=== PATIENT | female | born 1935 | race Caucasian/White ===

== ENCOUNTER 2017-01-21 05:50 | Day surgery (SDC) | payer MEDICARE, BC ==
[2017-01-10 10:41] LABS: BASOPHILS 0.2 %; BASOPHILS ABSOLUTE 0.01 10/3/uL (0.0-0.16); EOSINOPHILS 1.9 %; EOSINOPHILS ABSOLUTE 0.09 10/3/uL (0.0-0.53); HEMATOCRIT 39.2 % (36.0-48.0); HEMOGLOBIN 13.2 g/dL (12.0-16.0); IMMATURE GRANULOCYTES 0.2 %; IMMATURE GRANULOCYTES ABSOLUTE 0.01 10/3/uL (0.0-0.11); LYMPHOCYTES 21.5 %; LYMPHOCYTES ABSOLUTE 1.01 10/3/uL (0.67-4.30); MEAN CORPUS HGB CONC 33.7 g/dL (32.0-36.0); MEAN CORPUSCULAR HEMOGLOB 32.7 pg (26.0-34.0); MEAN PLATELET VOLUME 9.9 fL (9.2-13.0); MONOCYTES 7.9 %; MONOCYTES ABSOLUTE 0.37 10/3/uL (0.21-1.20); NEUTROPHILS 68.3 %; NEUTROPHILS ABSOLUTE 3.21 10/3/uL (2.02-8.40); PLATELET COUNT 254 10/3/uL (150-400); RBC DISTRIBUTION WIDTH 13.6 % (12.0-16.0); RED CELL COUNT 4.04 10/6/uL (4.0-5.6)
[2017-01-10 10:42] LABS: MANUAL DIFF NO %; WHITE BLOOD CELLS 4.7 10/3/uL (4.5-10.5)
[2017-01-10 10:56] LABS: BUN (BLOOD UREA NITROGEN) 19 MG/DL (6-23); CALCIUM, SERUM 9.6 MG/DL (8.5-10.4); CHLORIDE, SERUM 105 MMOL/L (96-112); CO2 (CARBON DIOXIDE) 33 MMOL/L (24-34); CREATININE 0.92 MG/DL (0.55-1.02); GFR AFRICAN AMERICAN 67 ML/MIN (>=60); GFR NON AFRICAN AMERICAN 58 ML/MIN (>=60); GLUCOSE, SERUM 88 MG/DL (60-99); POTASSIUM, SERUM 3.5 MMOL/L (3.5-5.3); SODIUM, SERUM 142 MMOL/L (135-148)
--- NOTE | ~2017-01-21 | OP ---
Record Of Operation [facility] [address] [place]. [address] NAME: JADE REYES : 31 STATUS : [facility]#: [id number] AGE: 81 ADM/REG DATE : 01/21/17 MR#: [id number] REPORT SERV DATE: 01/21/17 DICTATED BY: XENIA GLASS DATE: 01/21/17 REPORT STATUS : Draft TRANSCRIBED BY: MODL DATE: 01/21/17 DATE OF PROCEDURE: 01/21/2017 PREOPERATIVE DIAGNOSIS: Right rotator cuff tear, biceps tenodesis, impingement. POSTOPERATIVE DIAGNOSIS: Right rotator cuff tear, biceps tenodesis, impingement, superior labral tear. PROCEDURE: Right rotator cuff repair, biceps tenodesis, extensive debridement, subacromial decompression. SURGEON: Xenia Glass M.D. COMPLICATIONS: None. ANESTHESIA: General endotracheal with regional block per Anesthesia. INDICATIONS: This 81-year-old female presented with above mentioned condition. She failed nonoperative management and wished to proceed with operative intervention after discussion of above procedure. PROCEDURE: The patient was induced in the supine position. She was taken to the beach-chair position with care to maintain the cervical lordosis. A time-out protocol was enforced. Ancef was administered. Posterolateral portals were created for diagnostic arthroscopy, which revealed full- thickness supra and infraspinatus tear, severe attritional tearing of the biceps tendon with a type 2 labral tear, and severe synovitis, type 3 acromion. Extensive debridement: A 5.5 canula was localized with an outside-in spinal technique. The shaver was introduced. The biceps was debrided copiously on its intra-articular segment. This was severely macerated and hourglassed. We debrided the superior labrum and resected the synovitis anteriorly and posteriorly. We debrided the superior labrum down to a stable margin. We removed all of the remnant of the rotator cuff tissue on the greater tuberosity and optimized it for healing by decorticating the greater tuberosity. The biceps sheath was released and severe hyperemia which was not evident from intra-articularly was debrided. Subacromial decompression: The arthroscopic cannula was then removed from the posterior shoulder and redirected in the subacromial space. The metal trocar was inserted and the cannula was advanced out the anterior superior portal creating an outflow portal with outside in technique. A lateral portal was then created after spinal needle localization and a skin incision was made with an 11-blade. A large 5-5 shaver was then introduced into the joint from lateral and its tip was well visualized in the bursa. A bursectomy was performed going from lateral to medial allowing visualization of the rotator cuff and undersurface of the acromion. Coagulation was achieved with a 90-degree electrothermal device and the undersurface of the CA ligament was recessed with the tissue ablator. Bur Record Of Operation [facility] [address] [place]. [address] NAME: JADE REYES : 31 STATUS : [facility] PAT#: [id number] AGE: 81 ADM/REG DATE : 01/21/17 MR#: [id number] REPORT SERV DATE: 01/21/17 DICTATED BY: XENIA GLASS DATE: 01/21/17 REPORT STATUS : Draft TRANSCRIBED BY: DANIELLA DATE: 01/21/17 was then introduced laterally and acromioplasty was performed smoothing the acromion from a type I morphology. This was begun laterally and advanced medially. The AC joint was then checked for spurs and these were smoothed. The soft tissue decompression was carried out anteriorly, laterally and superiorly. The scope was then withdrawn and placed into the lateral portal and the cutting-block technique was used with the instrumentation from posterior to assure that a perfect acromioplasty had been performed. Decompression then underwent the final check by forward flexing the arm again to check for impingement. Rotator cuff repair and biceps tenodesis: We began by looking laterally, we placed the triple-loaded anchor at the posterior footprint, followed by double loaded, and then followed by another triple loaded anteriorly. We used right clever hooks, followed by Expressew, followed by Expressew, and left clever hooks to pass sutures through the rotator cuff medially. We tied the medial row and then used two SwiveLocks laterally for a 5-anchor transosseous-equivalent technique. The biceps sheath was then released and debrided. We brought the biceps out and used a clever hook to pass through the tendon and passed an interlocking stitch in the tendon and tied that tenodesing it into the anterior anchor The scope was withdrawn. Portals were closed with Monocryl. Steri-Strips were applied. The patient tolerated the procedure well. Taken to PACU in stable condition. POSTOPERATIVE PLAN: Large cuff protocol. BSS/MODL Xenia Glass M.D. / [id number] CC: Robbi Zarco M.D.
[~2017-01-21 05:50] MED LIST: ACET500CAP PO; ANTIHISTAMINE OTC PO; ASA5GR PO; ASABAYER PO; CALCIUM PO; CARD120 PO; CHLOR-PHENIR4 MG PO; CHLOR-TRIMETON4 MG PO; CHLORTABS PO; COZ50 PO; COZAAR100 MG PO; ERY-TAB500 MG PO; FISH-EPA1000 MG PO; FLONASE NAS; FOLBIC PO; FOLTX PO; HARD NAILS OR; LABETALOL PO; LIPITOR40 PO; LOP25 PO; MCZ25 PO; NAIL-EX2.5 MG PO; NASOCORT NAS; NEXIUM40 PO; NORV25 PO; OS500+D PO; PRESERVISION A1 EAC1 PO; RECLAST IV; SPIRO25 PO; TRANDAT100 PO; VITAMIN D1000 UNI1 PO; VITAMIN D31000 UNIT PO; VITE1000 PO; VYTORIN 10/40 T1 TAB PO; ZOL100 PO; [UNRECOGNIZED DRUG - REMARK] PO
== END 2017-01-21 16:01 | disposition home or self-care (01) ==
LOC: SDC 05:50
PROVIDERS: Orthopaedic Surgery Sports Medicine
PROC: 0RNJ4ZZ Release Right Shoulder Joint, Percutaneous Endoscopic Approach (ICD-10-PCS; 2017-01-21)
PROC: 0RBJ4ZZ Excision of Right Shoulder Joint, Percutaneous Endoscopic Approach (ICD-10-PCS; principal; 2017-01-21 07:45)
PROC: 0LQ14ZZ Repair Right Shoulder Tendon, Percutaneous Endoscopic Approach (ICD-10-PCS; 2017-01-21 07:45)
PROC: 0LS14ZZ Reposition Right Shoulder Tendon, Percutaneous Endoscopic Approach (ICD-10-PCS; 2017-01-21 07:45)
DX: M75.121 Complete rotator cuff tear or rupture of right shoulder, not specified as traumatic (principal); M75.21 Bicipital tendinitis, right shoulder; M75.41 Impingement syndrome of right shoulder; S43.491A Other sprain of right shoulder joint, initial encounter; X58.XXXA Exposure to other specified factors, initial encounter; M19.90 Unspecified osteoarthritis, unspecified site; M06.9 Rheumatoid arthritis, unspecified; M81.0 Age-related osteoporosis without current pathological fracture; M85.80 Other specified disorders of bone density and structure, unspecified site; I69.311 Memory deficit following cerebral infarction; I47.1 Supraventricular tachycardia; I12.9 Hypertensive chronic kidney disease with stage 1 through stage 4 chronic kidney disease, or unspecified chronic kidney disease; E78.00 Pure hypercholesterolemia, unspecified; N18.2 Chronic kidney disease, stage 2 (mild); G43.909 Migraine, unspecified, not intractable, without status migrainosus; G62.9 Polyneuropathy, unspecified; G47.33 Obstructive sleep apnea (adult) (pediatric); K21.9 Gastro-esophageal reflux disease without esophagitis; K64.9 Unspecified hemorrhoids; K58.9 Irritable bowel syndrome, unspecified; H91.90 Unspecified hearing loss, unspecified ear; D63.1 Anemia in chronic kidney disease; F41.9 Anxiety disorder, unspecified; F32.9 Major depressive disorder, single episode, unspecified; Z86.718 Personal history of other venous thrombosis and embolism; Z87.440 Personal history of urinary (tract) infections; Z96.642 Presence of left artificial hip joint; Z99.89 Dependence on other enabling machines and devices; Z90.49 Acquired absence of other specified parts of digestive tract; Z98.890 Other specified postprocedural states; Z87.442 Personal history of urinary calculi; Z90.710 Acquired absence of both cervix and uterus; Z90.89 Acquired absence of other organs; Z82.49 Family history of ischemic heart disease and other diseases of the circulatory system; Z83.6 Family history of other diseases of the respiratory system; Z88.1 Allergy status to other antibiotic agents; Z88.2 Allergy status to sulfonamides; Z91.048 Other nonmedicinal substance allergy status; Z79.82 Long term (current) use of aspirin; Z79.83 Long term (current) use of bisphosphonates; Z79.899 Other long term (current) drug therapy; Z98.41 Cataract extraction status, right eye; Z98.42 Cataract extraction status, left eye; Z96.1 Presence of intraocular lens; Z87.19 Personal history of other diseases of the digestive system; Z85.828 Personal history of other malignant neoplasm of skin
CPT/HCPCS: 80048; 85025; 88304; 93005; C1713; J0330; J0360; J0690; J1885; J2250; J2270; J2370; J2405; J2710; J2795; J3010; P9045